=== PATIENT | female | born 1990 ===

== ENCOUNTER 2023-07-07 07:04 | Day surgery (SDC) | payer OTHER ==
[2023-07-02 11:13] LABS: HEMATOCRIT 40.5 % (36.0-45.00); HEMOGLOBIN 13.7 g/dL (12.0-15.00); MEAN CELL VOLUME 92.2 fL (80.00-100.00); MEAN CORPUSCULAR HEMOGLOBIN 31.3 pg (27.00-32.0); MEAN CORPUSCULAR HGB CONC 33.9 g/dl (32.0-36.0); PLATELET COUNT 262 K/uL (150-450); RED CELL DISTRIBUTION WIDTH 13.4 % (11.5-14.5)
[2023-07-02 11:47] LABS: ALBUMIN 3.7 gm/dL (3.4-5.0); BILIRUBIN TOTAL 0.58 mg/dL (0.3-1.2); CALCIUM 8.9 mg/dL (8.5-10.1); CREATININE SERUM 0.7 mg/dL (0.55-1.02); GFR 96.37; GLOBULINA 3.5 G/DL (2.4-3.5); POTASSIUM 4.18 mEq/L (3.5-5.1); TOTAL PROTEIN 7.2 gm/dL (6.4-8.2)
[2023-07-02 11:51] LABS: INR 1.04; PARTIAL THROMBOPLASTIN TIME 31.5 SECONDS (22.0-34.0); PROTHROMBIN TIME 10.9 SECONDS (9.0-11.5)
== END 2023-07-07 15:15 | disposition home or self-care (01) ==
LOC: CIR.AMB 07:04
PROVIDERS: ATTEND Obstetrics & Gynecology
DX: N88.2 Stricture and stenosis of cervix uteri (principal); N84.0 Polyp of corpus uteri